=== PATIENT | male | born 1950 | race Caucasian/White ===

== ENCOUNTER 2022-06-30 14:05 | Day surgery (SDC) | payer OTHER ==
[~2022-06-30] VITALS: Ht 175.3 cm; Wt 93.7 kg
[~2022-06-30 14:05] MED LIST: AMLO5 PO; ASPI81CH PO; ASPI81EC; BLOOD PRESSURE MED; GLYB2.5 PO; Glipizide ER5 MG PO; HYDACE10B PO; HYDACE5 PO; Janumet 50-1,01 EACH PO; LEVSOD100 PO; LEVSOD50 PO; LISHYD2012 PO; LISI20 PO; Levothyroxine200 MCG PO; META800 PO; METF500 PO; MULVIT PO; MULVITMINF; NAPR550 PO; OMEP20ER PO; OXYACE5T PO; PRAV20 PO; Pravachol80 MG PO; RXCYCL10 PO; RXNAPNA550 PO; ZESTORETIC 20-121 EA PO
[2022-06-30] MEDS ORDERED: EUTHYROX175 MCG PO (14:45)
[2022-06-30] MEDS ORDERED: PIOG30 PO (14:47)
[2022-06-30] MEDS ORDERED: HYDCHL25 PO (14:48)
[2022-06-30] MEDS ORDERED: ALOGLIPTIN12.5 M1 PO (14:49)
--- NOTE | 2022-06-30 14:56 | NUR ---
06/30/22 1456 Paty Glover IN AT 1444 [place] IN AT 1444
== END 2022-06-30 16:00 | disposition home or self-care (01) ==
LOC: ORSCSDS 14:05
PROVIDERS: Ophthalmology
PROC: 08RJ3JZ Replacement of Right Lens with Synthetic Substitute, Percutaneous Approach (ICD-10-PCS; principal; 2022-06-30 15:30)
DX: E11.36 Type 2 diabetes mellitus with diabetic cataract (principal); H25.11 Age-related nuclear cataract, right eye; H21.81 Floppy iris syndrome; E03.9 Hypothyroidism, unspecified; I10 Essential (primary) hypertension; K21.9 Gastro-esophageal reflux disease without esophagitis; E78.00 Pure hypercholesterolemia, unspecified; Z95.0 Presence of cardiac pacemaker; Z86.73 Personal history of transient ischemic attack (TIA), and cerebral infarction without residual deficits; Z79.84 Long term (current) use of oral hypoglycemic drugs; Z79.899 Other long term (current) drug therapy
CPT/HCPCS: 82947; J2001; J2250; J3010; J3301; J7040; V2632

== ENCOUNTER 2022-07-07 14:40 | Day surgery (SDC) | payer OTHER ==
[~2022-07-07] VITALS: Ht 175.3 cm; Wt 94.4 kg
[~2022-07-07 14:40] MED LIST changes: +ALOGLIPTIN12.5 M1 PO; +EUTHYROX175 MCG PO; +HYDCHL25 PO; +PIOG30 PO
== END 2022-07-07 16:55 | disposition home or self-care (01) ==
LOC: ORSCSDS 14:40
PROVIDERS: Ophthalmology
PROC: 08RK3JZ Replacement of Left Lens with Synthetic Substitute, Percutaneous Approach (ICD-10-PCS; principal; 2022-07-07 16:00)
DX: E11.36 Type 2 diabetes mellitus with diabetic cataract (principal); H25.12 Age-related nuclear cataract, left eye; H21.81 Floppy iris syndrome; I10 Essential (primary) hypertension; K21.9 Gastro-esophageal reflux disease without esophagitis; Z95.0 Presence of cardiac pacemaker; Z79.899 Other long term (current) drug therapy
CPT/HCPCS: 82947; J2001; J2250; J3010; J3301; J7040; V2632